=== PATIENT | male | born 1995 | race Caucasian/White ===

== ENCOUNTER 2022-05-07 16:17 | Emergency (ER) | payer OTHER ==
[2022-05-07 16:37] VITALS: BP 135/85; PULSE 78; RESP 16; TEMP 97.9; BMI 34.4
[2022-05-07] MEDS ORDERED: METHOCARBAMOL 500 MG TABLET PO ONE (17:02)
[2022-05-07] MEDS ORDERED: LIDOCAINE 5% TOPICAL PATCH TP ONE (17:02)
[2022-05-07] MEDS ORDERED: METHOCARBAMOL 500 MG TABLET ONE (17:08)
[2022-05-07] MEDS ORDERED: LIDOCAINE 5% TOPICAL PATCH ONE (17:09)
[2022-05-07] MEDS ORDERED: LIDOCAINE PATCH REMOVAL MC SCH (22:00)
== END 2022-05-07 18:13 | disposition home or self-care (01) ==
LOC: FER 16:17
DX: S39.012A Strain of muscle, fascia and tendon of lower back, initial encounter (principal); V49.40XA Driver injured in collision with unspecified motor vehicles in traffic accident, initial encounter
CPT/HCPCS: 71046-TC-FY; 72170-TC-FY; 73562-TC-LT-FY; 73610-TC-LT-FY; 99284-25

== ENCOUNTER 2022-10-27 20:50 | Emergency (ER) | payer OTHER ==
[2022-10-27 21:05] VITALS: BP 133/85; PULSE 83; RESP 18; TEMP 98.5; BMI 25.9
[2022-10-27] MEDS ORDERED: PANTOPRAZOLE SODIUM 40 MG VIAL IVPUSH ONE (21:28)
[2022-10-27] MEDS ORDERED: SODIUM CHLORIDE 1,000 ML IV ONE ×2 (21:28)
[2022-10-27] MEDS ORDERED: INSULIN REGULAR HUMAN 100 UNITS/ML *VIAL IVPUSH ONE (21:29)
[2022-10-27] MEDS ORDERED: PANTOPRAZOLE SODIUM 40 MG VIAL ONE (21:38)
[2022-10-27] MEDS ORDERED: INSULIN REGULAR HUMAN 100 UNITS/ML *VIAL ONE (21:38)
[2022-10-27 21:55] LABS: HEMATOCRIT 48.4 % (35.4-49); HEMOGLOBIN 16.9 G/dL (11.7-16.9); MCH 31.7 pg (25.7-33.7); MCHC 34.9 g/dl (32.0-35.9); MEAN CELL VOLUME 90.8 fl (80-96); MEAN PLT VOLUME 11.1 fl (7.5-11.1); PLATELET COUNT 172.9 10^3/uL (134-434); RBC 5.33 10^6/uL (4.00-5.60); RDW 13.5 % (11.9-15.9); WHITE BLOOD COUNT 5.4 10^3/uL (4.0-10.8)
[2022-10-27 21:58] LABS: ALBUMIN 4.5 g/dl (3.4-5.0); BILIRUBIN,TOTAL 0.4 mg/dl (0.2-1); BLOOD UREA NITROGEN 14.7 mg/dl (7-18); CALCIUM 9.2 mg/dl (8.5-10.1); CREATININE 1.1 mg/dl (0.6-1.3); MAGNESIUM 1.7 mg/dL (1.8-2.4); PHOSPHOROUS 3.16 (2.5-4.9); POTASSIUM 4.3 mmol/L (3.5-5.1); SGOT/AST 25.6 U/L (15-37); SGPT/ALT 69.1 U/L (7-52)
[2022-10-27] MEDS ORDERED: metFORMIN HCL 500 MG TABLET (FP) PO ONE (22:23)
[2022-10-27] MEDS ORDERED: metFORMIN HCL 500 MG TABLET (FP) ONE (22:32)
== END 2022-10-27 23:04 | disposition home or self-care (01) ==
LOC: FER 20:50
PROC: 3E033VG Introduction of Insulin into Peripheral Vein, Percutaneous Approach (ICD-10-PCS; principal; 2022-10-27)
PROC: 3E033GC Introduction of Other Therapeutic Substance into Peripheral Vein, Percutaneous Approach (ICD-10-PCS; 2022-10-27)
PROC: 3E0337Z Introduction of Electrolytic and Water Balance Substance into Peripheral Vein, Percutaneous Approach (ICD-10-PCS; 2022-10-27)
DX: E11.65 Type 2 diabetes mellitus with hyperglycemia (principal); R53.1 Weakness; R35.89 Other polyuria; R63.1 Polydipsia; R10.13 Epigastric pain; R10.12 Left upper quadrant pain
CPT/HCPCS: 36415; 80053; 81003; 82962; 83605; 83690; 83735; 84100; 85027; 93005; 99284-25